=== PATIENT | male | born 1940 | race Caucasian/White ===

== ENCOUNTER → 2018-09-14 | Outpatient (CLI) | payer MEDICARE ==
[2018-09-14 08:50] LABS: ABSOLUTE EOSINOPHILS 0.1 thou/uL (0.0-0.7); ABSOLUTE LYMPHOCYTES 1.6 thou/uL (0.8-5.3); ABSOLUTE MONOCYTES 0.5 thou/uL (0.0-1.2); ABSOLUTE NEUTROPHILS 2.6 thou/uL (1.6-8.1); BASOPHILS 0.7 %; EOSINOPHILS 1.8 %; HEMATOCRIT 44.3 % (42.0-52.0); HEMOGLOBIN 14.7 gm/dL (14.0-18.0); LYMPHOCYTES 33.2 %; MCH 30.7 pg (26.0-34.0); MCHC 33.1 g/dL (28.0-37.0); MCV 92.7 fL (80.0-100.0); MPV 7.6 fl. (7.2-11.1); NUCLEATED RBCS 0 /100WBC; PLATELET COUNT* 211 thou/uL (150-400); POLYS 54.3 %; RBC 4.78 mil/uL (4.50-6.00); RDW-CV 12.9 % (10.5-14.5); WBC 4.8 thou/uL (4.0-11.0)
[2018-09-14 09:02] LABS: ALBUMIN 3.7 g/dL (3.4-5.0); CALCIUM 9.1 mg/dL (8.5-10.1); CREATININE 1.3 mg/dL (0.6-1.3); POTASSIUM 3.8 mmol/L (3.5-5.1); TOTAL BILIRUBIN 0.6 mg/dL (<0.1-1.0); TOTAL PROTEIN 7.7 g/dL (6.4-8.2)
[2018-09-14 09:54] LABS: ESR (SEDRATE) 12 mm/hr (0-20)
== END ==
LOC: M.LAB 08:32
PROVIDERS: Psychiatry & Neurology Neuromuscular Medicine
DX: R26.9 Unspecified abnormalities of gait and mobility (principal); R41.3 Other amnesia

== ENCOUNTER → 2018-09-17 | Outpatient (CLI) | payer MEDICARE | LOC: M.CT 10:40 | DX: G31.9 Degenerative disease of nervous system, unspecified (principal); R27.0 Ataxia, unspecified; R41.3 Other amnesia ==